=== PATIENT | male | born 1965 | race Caucasian/White ===

== ENCOUNTER 2016-08-21 23:32 | Emergency (ER) | payer OTHER ==
[~2016-08-21] VITALS: Ht 175.3 cm; Wt 81.6 kg
[~2016-08-21 23:32] MED LIST: AMLO10TA2 PO; BENA20TA4 PO; CALC667T2 PO; CARV12.516 OR; CINA60TA PO; CLON0.1T PO; ISOS20TA49 PO; MULT-397 OR; PRED-188 PO
[2016-08-22] MEDS ORDERED: SODIUM CHLORIDE 0.9% 1,000 ML IV ONE (07:26)
[2016-08-22] MEDS ORDERED: NALBUPHINE HCL 10 MG/1ml INJECTION IV ONE (07:30)
[2016-08-22] MEDS ORDERED: ASPirin 81 mg TAB PO ONE (07:30)
[2016-08-22] MEDS ORDERED: PROMETHAZINE HCL 25 MG/ML 1ML IV ONE (07:30)
[2016-08-22 08:13] LABS: Basophils # (auto) 0.1 uL; Basophils % (auto) 0.5 % (0.0-2.0); Eosinophils # (auto) 0.5 uL; Hematocrit 38.1 % (41.0-53.0); Hemoglobin 12.6 g/dL (13.5-17.5); Lymphocytes # (auto) 2.2 uL; Lymphocytes % (auto) 16.8 % (10.0-50.0); Mean Corpuscular Hemoglobin 30.4 pg (28.0-32.0); Mean Corpuscular Hgb Conc. 32.9 g/dL (32.0-36.0); Mean Corpuscular Volume 92.3 fL (80.0-100.0); Mean Platelet Volume 9.4 fL (7.4-10.4); Monocytes # (auto) 1.4 uL; Monocytes % (auto) 10.9 % (0.0-12.0); Neutrophils # (auto) 8.9 uL; Neutrophils % (auto) 67.8 % (37.0-80.0); Platelet Count (auto) 315 10^3/uL (140-450); Red Cell Distribution Width 16.1 % (11.6-16.0); White Blood Cell 13.2 10^3/uL (4.4-10.8)
[2016-08-22 08:29] LABS: Albumin 4.2 g/dL (3.4-5.0); Bilirubin, Total 0.4 mg/dL (0.2-1.0); Calcium 9.8 mg/dL (8.5-10.1); Magnesium 2.6 mg/dL (1.6-2.6); Potassium 4.8 mmol/L (3.5-5.1); Total Protein 7.5 g/dL (6.4-8.2)
[2016-08-22 08:52] LABS: B-Type Natriuretic Peptide 864.45 pg/mL (0-100); Temperature: 21.9 C (20.0-25.0)
[2016-08-22 11:20] VITALS: BP 140/85
[2016-08-22] MEDS ORDERED: FUROSEMIDE 20 MG/2 ML VIAL IV ONE (11:30)
== END 2016-08-22 11:46 | disposition home or self-care (01) ==
LOC: ER 23:38
DX: M79.89 Other specified soft tissue disorders (principal); I13.2 Hypertensive heart and chronic kidney disease with heart failure and with stage 5 chronic kidney disease, or end stage renal disease; I50.32 Chronic diastolic (congestive) heart failure; N18.6 End stage renal disease; Z99.2 Dependence on renal dialysis; D63.1 Anemia in chronic kidney disease; I25.2 Old myocardial infarction; I48.91 Unspecified atrial fibrillation; I25.10 Atherosclerotic heart disease of native coronary artery without angina pectoris; Z88.6 Allergy status to analgesic agent; Z91.041 Radiographic dye allergy status; Z79.899 Other long term (current) drug therapy
CPT/HCPCS: 36415; 71020; 73130; 80053; 83735; 83880; 84443; 84484; 85025; 85049; 93005; 94761; 96361; 96374; 96375; 99285; J2300; J2550; J7030

== ENCOUNTER 2016-10-03 14:50 | Emergency (ER) | payer OTHER ==
[~2016-10-03] VITALS: Ht 175.3 cm; Wt 81.6 kg
[2016-10-03 15:07] VITALS: BP 160/105
[2016-10-03 16:09] LABS: Albumin 3.7 g/dL (3.4-5.0); BUN/Creatinine Ratio 6.5; Bilirubin, Total 0.5 mg/dL (0.2-1.0); Calcium 9.6 mg/dL (8.5-10.1); Magnesium 2.5 mg/dL (1.6-2.6)
[2016-10-03 16:14] LABS: B-Type Natriuretic Peptide 1683.25 pg/mL (0-100); Temperature: 22.9 C (20.0-25.0)
[2016-10-03 16:32] LABS: INR 1.09 (0.9-1.15); Prothrombin Time 11.2 sec (9.37-12.3)
[2016-10-03 16:38] LABS: Basophils # (auto) 0.1 uL; Basophils % (auto) 0.9 % (0.0-2.0); Eosinophils # (auto) 0.1 uL; Eosinophils % (auto) 1.3 % (0.0-7.0); Hematocrit 31.1 % (41.0-53.0); Hemoglobin 10.1 g/dL (13.5-17.5); Lymphocytes # (auto) 0.7 uL; Lymphocytes % (auto) 9.6 % (10.0-50.0); Mean Corpuscular Hemoglobin 29.9 pg (28.0-32.0); Mean Corpuscular Hgb Conc. 32.4 g/dL (32.0-36.0); Mean Corpuscular Volume 92.2 fL (80.0-100.0); Mean Platelet Volume 10.3 fL (7.4-10.4); Monocytes # (auto) 0.5 uL; Monocytes % (auto) 6.7 % (0.0-12.0); Neutrophils # (auto) 6.1 uL; Neutrophils % (auto) 81.5 % (37.0-80.0); Platelet Count (auto) 248 10^3/uL (140-450); Potassium 7.2 mmol/L (3.5-5.1); Red Cell Distribution Width 16.7 % (11.6-16.0); White Blood Cell 7.5 10^3/uL (4.4-10.8)
== END 2016-10-03 17:45 | disposition left against medical advice (07) ==
LOC: ER 14:50
DX: R53.1 Weakness (principal); Z53.21 Procedure and treatment not carried out due to patient leaving prior to being seen by health care provider
CPT/HCPCS: 36415; 71010; 80053; 83735; 83880; 84484; 85025; 85379; 85610; 85730; 93005

== ENCOUNTER 2016-11-18 18:01 | Emergency (ER) | payer OTHER ==
[~2016-11-18] VITALS: Ht 175.3 cm; Wt 80.3 kg
[2016-11-19] MEDS ORDERED: HYDROmorphone HCL 2 MG/ML VL IM ONE (01:45)
[2016-11-19 03:54] VITALS: BP 140/88
== END 2016-11-19 04:47 | disposition home or self-care (01) ==
LOC: ER 18:16
DX: S66.912A Strain of unspecified muscle, fascia and tendon at wrist and hand level, left hand, initial encounter (principal); I48.91 Unspecified atrial fibrillation; I25.10 Atherosclerotic heart disease of native coronary artery without angina pectoris; I13.2 Hypertensive heart and chronic kidney disease with heart failure and with stage 5 chronic kidney disease, or end stage renal disease; N18.6 End stage renal disease; I50.9 Heart failure, unspecified; I25.2 Old myocardial infarction; Z88.6 Allergy status to analgesic agent; X58.XXXA Exposure to other specified factors, initial encounter; Y93.01 Activity, walking, marching and hiking; Y99.8 Other external cause status; Y92.89 Other specified places as the place of occurrence of the external cause; Z79.899 Other long term (current) drug therapy
CPT/HCPCS: 73110; 93005; 96372; 99284; J1170

== ENCOUNTER 2016-12-05 14:16 | Observation (INO) | payer OTHER ==
[~2016-12-05] VITALS: Ht 175.3 cm; Wt 81.6 kg
[2016-12-05 15:09] LABS: Basophils # (auto) 0 uL; Basophils % (auto) 0.4 % (0.0-2.0); Eosinophils # (auto) 0.2 uL; Eosinophils % (auto) 1.6 % (0.0-7.0); Hematocrit 41.3 % (41.0-53.0); Hemoglobin 13.4 g/dL (13.5-17.5); Lymphocytes # (auto) 0.7 uL; Lymphocytes % (auto) 7.3 % (10.0-50.0); Mean Corpuscular Hemoglobin 28.3 pg (28.0-32.0); Mean Corpuscular Hgb Conc. 32.5 g/dL (32.0-36.0); Mean Corpuscular Volume 87.3 fL (80.0-100.0); Mean Platelet Volume 9.2 fL (7.4-10.4); Monocytes # (auto) 0.6 uL; Monocytes % (auto) 5.7 % (0.0-12.0); Neutrophils # (auto) 8.3 uL; Platelet Count (auto) 279 10^3/uL (140-450); White Blood Cell 9.8 10^3/uL (4.4-10.8)
[2016-12-05] MEDS ORDERED: SODIUM CHLORIDE 0.9% 250 ML IV ONE (15:47)
[2016-12-05] MEDS ORDERED: MORPHINE SULF INJ 2 MG/ML SYRINGE 1ML IV ONE (16:00)
[2016-12-05] MEDS ORDERED: METOCLOPRAMIDE HCL 5MG/ml INJ 2ml VIAL IV ONE (16:00)
[2016-12-05 16:11] VITALS: BP 110/70
[2016-12-05 16:29] LABS: Albumin 3.5 g/dL (3.4-5.0); BUN/Creatinine Ratio 5.9; Calcium 9.4 mg/dL (8.5-10.1); Magnesium 2.4 mg/dL (1.6-2.6)
[2016-12-05 16:41] LABS: Bilirubin, Total 0.5 mg/dL (0.2-1.0); Total Protein 7.4 g/dL (6.4-8.2)
[2016-12-05 16:47] LABS: Potassium 5.6 mmol/L (3.5-5.1)
[2016-12-05] MEDS ORDERED: DEXTROSE (50%) 50ML SYRG IV PRN (17:30)
[2016-12-05] MEDS ORDERED: LORazepam 0.5 MG TAB PO PRN (17:30)
[2016-12-05] MEDS ORDERED: ACETAMINOPHEN 500 MG TAB PO PRN (17:30)
[2016-12-05] MEDS ORDERED: PROCHLORPERAZINE EDISYLATE 5 MG/ML 2ML VIAL IV PRN (17:30)
[2016-12-05] MEDS ORDERED: NITROGLYCERIN 0.4 MG SL TAB SL PRN (17:30)
[2016-12-05] MEDS ORDERED: LACTULOSE 20Gm/30ML SOLN PO PRN (17:30)
[2016-12-05] MEDS ORDERED: cloNIDine HCL 0.1 MG TAB PO PRN (17:30)
[2016-12-05] MEDS ORDERED: MORPHINE SULF INJ 2 MG/ML SYRINGE 1ML IV PRN ×2 (17:30)
[2016-12-05] MEDS ORDERED: TEMAZEPAM 15 MG CAP PO PRN (17:30)
[2016-12-05] MEDS ORDERED: predniSONE 20 MG TAB PO SCH (17:37)
[2016-12-05] MEDS ORDERED: CINACALCET HYDROCHLORIDE 30 MG TAB PO ONE (17:45)
[2016-12-05] MEDS ORDERED: InsuLIN REG 1unit/0.01ml Soln (100units/ml) SC SCH (18:00)
[2016-12-05] MEDS ORDERED: ISOSORBIDE MONONITRATE 60 MG TAB PO ONE (18:00)
[2016-12-05] MEDS ORDERED: ENOXAPARIN SOD 30 MG/0.3 ML SYRINGE SC ONE (18:00)
[2016-12-05] MEDS ORDERED: NITROGLYCERIN 0.2MG/HR TOPICAL PATCH TD ONE (18:00)
[2016-12-05] MEDS ORDERED: BENAZEPRIL HCL 10 MG TAB PO ONE (18:00)
[2016-12-05] MEDS ORDERED: FUROSEMIDE 40 MG/4 ML VIAL IV ONE (18:00)
[2016-12-05] MEDS ORDERED: ACCU-CHEK COMFORT CURVE STRIP VI SCH (18:00)
[2016-12-05] MEDS ORDERED: CALCIUM ACETATE 667 MG CAP PO SCH (18:00)
[2016-12-05] MEDS ORDERED: CALCIUM ACETATE PO SCH (18:00)
[2016-12-05] MEDS ORDERED: PANTOPRAZOLE 40 MG TAB PO ONE (18:00)
[2016-12-05] MEDS ORDERED: amLODIPine BESYLATE 5 MG TAB PO ONE (18:00)
[2016-12-05] MEDS ORDERED: CARVEDILOL 12.5 MG TAB PO SCH (22:00)
[2016-12-06] MEDS ORDERED: amLODIPine BESYLATE 5 MG TAB PO SCH (10:00)
[2016-12-06] MEDS ORDERED: FUROSEMIDE 40 MG/4 ML VIAL IV SCH (10:00)
[2016-12-06] MEDS ORDERED: CINACALCET HYDROCHLORIDE 30 MG TAB PO SCH (10:00)
[2016-12-06] MEDS ORDERED: BENAZEPRIL HCL 10 MG TAB PO SCH (10:00)
[2016-12-06] MEDS ORDERED: CINACALCET HYDROCHLORIDE PO SCH (10:00)
[2016-12-06] MEDS ORDERED: BENAZEPRIL HCL PO SCH (10:00)
[2016-12-06] MEDS ORDERED: PANTOPRAZOLE 40 MG TAB PO SCH (10:00)
[2016-12-06] MEDS ORDERED: ISOSORBIDE MONONITRATE 20 MG TAB PO SCH (10:00)
[2016-12-06] MEDS ORDERED: ISOSORBIDE MONONITRATE 60 MG TAB PO SCH (10:00)
[2016-12-06] MEDS ORDERED: PATIENTS OWN MEDICATION (Amlodipine Besylate 1 TAB) PO SCH ×2 (10:00)
[2016-12-06] MEDS ORDERED: ENOXAPARIN SOD 30 MG/0.3 ML SYRINGE SC SCH (10:00)
[2016-12-06] MEDS ORDERED: NITROGLYCERIN 0.2MG/HR TOPICAL PATCH TD SCH (10:00)
== END 2016-12-05 18:16 | disposition home or self-care (01) | DRG 291 ==
LOC: ER 14:20 → OVERFLOW 15:49 → UNDODEPER 18:17
PROVIDERS: ADMIT Emergency Medicine; ATTEND Emergency Medicine
DX: I13.2 Hypertensive heart and chronic kidney disease with heart failure and with stage 5 chronic kidney disease, or end stage renal disease (principal); N18.6 End stage renal disease; F33.1 Major depressive disorder, recurrent, moderate; I50.9 Heart failure, unspecified; D63.8 Anemia in other chronic diseases classified elsewhere; I48.91 Unspecified atrial fibrillation; Z99.2 Dependence on renal dialysis; I25.2 Old myocardial infarction; Z82.49 Family history of ischemic heart disease and other diseases of the circulatory system; Z82.3 Family history of stroke; G89.4 Chronic pain syndrome; F41.9 Anxiety disorder, unspecified; I25.119 Atherosclerotic heart disease of native coronary artery with unspecified angina pectoris; Z91.19 Patient's noncompliance with other medical treatment and regimen
CPT/HCPCS: 36415; 71020; 80053; 82550; 83036; 83735; 84484; 85025; 93005; 96361; 96374; 96375; 99285; G0378; J2270; J2765; J7040

== ENCOUNTER 2016-12-07 08:41 | Inpatient (IN) | payer OTHER ==
[2016-12-06] MEDS: MORPHINE SULF INJ 2 MG/ML SYRINGE 1ML IV PRN (19:40)
[~2016-12-07] VITALS: Ht 175.3 cm; Wt 83.5 kg
[2016-12-07 09:30] LABS: Basophils # (auto) 0 uL; Basophils % (auto) 0.5 % (0.0-2.0); Eosinophils # (auto) 0.5 uL; Eosinophils % (auto) 5.4 % (0.0-7.0); Hematocrit 39.5 % (41.0-53.0); Hemoglobin 12.9 g/dL (13.5-17.5); Lymphocytes # (auto) 1.7 uL; Lymphocytes % (auto) 16.6 % (10.0-50.0); Mean Corpuscular Hemoglobin 28.4 pg (28.0-32.0); Mean Corpuscular Hgb Conc. 32.7 g/dL (32.0-36.0); Mean Platelet Volume 9.3 fL (7.4-10.4); Monocytes % (auto) 9.9 % (0.0-12.0); Neutrophils # (auto) 6.8 uL; Neutrophils % (auto) 67.6 % (37.0-80.0); Platelet Count (auto) 258 10^3/uL (140-450); Red Cell Distribution Width 15.1 % (11.6-16.0)
[2016-12-07 09:51] LABS: INR 0.98 (0.9-1.15); Partial Thromboplastin Time 29.4 sec (22.64-33.71); Prothrombin Time 10.6 sec (9.37-12.3)
[2016-12-07 09:57] LABS: Albumin 3.6 g/dL (3.4-5.0); BUN/Creatinine Ratio 6.4; Bilirubin, Total 0.5 mg/dL (0.2-1.0); Calcium 10.1 mg/dL (8.5-10.1); Magnesium 2.5 mg/dL (1.6-2.6); Potassium 5.1 mmol/L (3.5-5.1); Total Protein 7.6 g/dL (6.4-8.2)
[2016-12-07] MEDS ORDERED: DILTIAZEM HCL 25 MG/5 ML VIAL IV ONE (10:15)
[2016-12-07] MEDS ORDERED: MORPHINE SULFATE 4 MG/ML SYRG IV ONE (10:15)
[2016-12-07] MEDS ORDERED: ONDANSETRON HCL 4 MG/2 ML VIAL IV ONE (10:15)
[2016-12-07] MEDS ORDERED: FUROSEMIDE 40 MG/4 ML VIAL IV ONE (10:15)
[2016-12-07] MEDS ORDERED: HYDROcodone-ACET 5/325MG TAB PO PRN (10:30)
[2016-12-07] MEDS ORDERED: PROCHLORPERAZINE EDISYLATE 5 MG/ML 2ML VIAL IV PRN (10:30)
[2016-12-07] MEDS ORDERED: cloNIDine HCL 0.1 MG TAB PO PRN (10:30)
[2016-12-07] MEDS ORDERED: ENOXAPARIN SOD 80 MG/0.8ML SYRINGE SC ONE (10:30)
[2016-12-07] MEDS ORDERED: CARVEDILOL 12.5 MG TAB PO ONE (10:30)
[2016-12-07] MEDS ORDERED: ACETAMINOPHEN 500 MG TAB PO PRN (10:30)
[2016-12-07] MEDS ORDERED: METOPROLOL TARTRATE 25 MG TAB PO SCH (10:30)
[2016-12-07] MEDS ORDERED: NITROGLYCERIN 0.4 MG SL TAB SL PRN (10:30)
[2016-12-07] MEDS ORDERED: LACTULOSE 20Gm/30ML SOLN PO PRN (10:30)
[2016-12-07] MEDS ORDERED: LORazepam 0.5 MG TAB PO PRN (10:30)
[2016-12-07] MEDS ORDERED: TEMAZEPAM 15 MG CAP PO PRN (10:30)
[2016-12-07] MEDS ORDERED: ENOXAPARIN SOD 80 MG/0.8ML SYRINGE SC SCH (10:45)
[2016-12-07] MEDS: ISOSORBIDE MONONITRATE 60 MG TAB PO SCH (10:45)
[2016-12-07] MEDS: PANTOPRAZOLE 40 MG TAB PO SCH (11:00)
[2016-12-07] MEDS ORDERED: ENOXAPARIN SOD 30 MG/0.3 ML SYRINGE SC SCH (11:00)
[2016-12-07] MEDS ORDERED: predniSONE 20 MG TAB PO ONE (11:00)
[2016-12-07] MEDS ORDERED: amLODIPine BESYLATE 5 MG TAB PO ONE (11:00)
[2016-12-07] MEDS: CALCIUM ACETATE 667 MG CAP PO SCH ×2 (11:34→16:58)
[2016-12-07] MEDS ORDERED: CALCIUM ACETATE PO SCH (12:00)
[2016-12-07] MEDS: MORPHINE SULF INJ 2 MG/ML SYRINGE 1ML IV PRN ×4 (12:54→23:52)
[2016-12-07 16:05] VITALS: BP 140/91
[2016-12-07 17:00] VITALS: BP 140/91
[2016-12-07] MEDS ORDERED: NITR0.4S29 SL (19:53)
[2016-12-07 21:36] VITALS: BP 120/86
[2016-12-07] MEDS: CARVEDILOL 12.5 MG TAB PO SCH (22:00)
[2016-12-07] MEDS: ATORVASTATIN 20 MG TAB PO SCH (22:01)
[2016-12-07] MEDS: ONDANSETRON HCL 4 MG/2 ML VIAL IV PRN (23:51)
[2016-12-08] MEDS: MORPHINE SULF INJ 2 MG/ML SYRINGE 1ML IV PRN ×2 (03:50→07:57)
[2016-12-08 04:34] VITALS: BP 153/97
[2016-12-08] MEDS: ONDANSETRON HCL 4 MG/2 ML VIAL IV PRN (06:10)
[2016-12-08 06:11] LABS: Cholesterol 159 mg/dL (< 200); HDL Cholesterol 55 mg/dL (40-59); LDL Cholesterol 93 mg/dL (< 100); Triglycerides 127 mg/dL (< 150)
[2016-12-08] MEDS: CALCIUM ACETATE 667 MG CAP PO SCH ×3 (07:32→17:32)
[2016-12-08 08:00] VITALS: BP 146/102
[2016-12-08] MEDS: CARVEDILOL 12.5 MG TAB PO SCH ×2 (10:00→21:39)
[2016-12-08] MEDS ORDERED: predniSONE 20 MG TAB PO SCH (10:00)
[2016-12-08] MEDS ORDERED: NITROGLYCERIN 0.2MG/HR TOPICAL PATCH TD SCH (10:00)
[2016-12-08] MEDS ORDERED: PATIENTS OWN MEDICATION (Amlodipine Besylate 1 TAB) PO SCH ×2 (10:00)
[2016-12-08] MEDS ORDERED: BENAZEPRIL HCL PO SCH (10:00)
[2016-12-08] MEDS ORDERED: SODIUM POLYSTYRENE SULF 15GM/60ML SUSP PO ONE (10:15)
[2016-12-08] MEDS ORDERED: CALCIUM GLUC 4.65 MEQ/10ML 4.65 MEQ in SODIUM CHL 0.9% 50 ML IV ONE ×2 (10:15→17:45)
[2016-12-08] MEDS ORDERED: DEXTROSE (50%) 50ML SYRG IV ONE (10:30)
[2016-12-08] MEDS ORDERED: InsuLIN REG 1unit/0.01ml Soln (100units/ml) IV ONE (10:30)
[2016-12-08 11:40] VITALS: BP 146/102
[2016-12-08] MEDS: CINACALCET HYDROCHLORIDE 30 MG TAB PO SCH (12:07)
[2016-12-08] MEDS: PANTOPRAZOLE 40 MG TAB PO SCH (12:07)
[2016-12-08] MEDS: ISOSORBIDE MONONITRATE 60 MG TAB PO SCH (12:08)
[2016-12-08] MEDS: amLODIPine BESYLATE 5 MG TAB PO SCH (12:09)
[2016-12-08] MEDS: BENAZEPRIL HCL 10 MG TAB PO SCH (12:09)
[2016-12-08 16:53] VITALS: BP 144/90
[2016-12-08 18:35] LABS: BUN/Creatinine Ratio 7.2; Calcium 9.8 mg/dL (8.5-10.1)
[2016-12-08 18:44] LABS: Potassium 6.9 mmol/L (3.5-5.1)
[2016-12-08] MEDS: NITROGLYCERIN 0.4 MG SL TAB SL PRN (20:10)
[2016-12-08] MEDS ORDERED: ACETAMINOPHEN 325 MG TAB PO PRN (20:30)
[2016-12-08] MEDS ORDERED: DEXTROSE (50%) 50ML SYRG IV SCH (21:00)
[2016-12-08] MEDS ORDERED: DEXTROSE (50%) 50ML SYRG IV PRN (21:15)
[2016-12-08] MEDS: ATORVASTATIN 20 MG TAB PO SCH (21:39)
[2016-12-08 21:42] VITALS: BP 146/98
[2016-12-09 05:00] VITALS: BP 133/87
[2016-12-09] MEDS: NITROGLYCERIN 0.4 MG SL TAB SL PRN (05:06)
[2016-12-09 06:01] LABS: Calcium 8.8 mg/dL (8.5-10.1)
[2016-12-09 06:09] LABS: BUN/Creatinine Ratio 7.3
[2016-12-09 06:17] LABS: Potassium 5.7 mmol/L (3.5-5.1)
[2016-12-09 08:00] VITALS: BP 150/97
[2016-12-09] MEDS: CALCIUM ACETATE 667 MG CAP PO SCH ×2 (08:00→12:00)
[2016-12-09 09:00] VITALS: BP 136/97
[2016-12-09] MEDS ORDERED: diphenhdrAMINE HCL 50 MG/1 ML VL IV ONE ×2 (09:30)
[2016-12-09] MEDS: PANTOPRAZOLE 40 MG TAB PO SCH (10:00)
[2016-12-09] MEDS: CARVEDILOL 12.5 MG TAB PO SCH (10:00)
[2016-12-09] MEDS: CINACALCET HYDROCHLORIDE 30 MG TAB PO SCH (10:00)
[2016-12-09] MEDS: BENAZEPRIL HCL 10 MG TAB PO SCH (10:00)
[2016-12-09] MEDS: amLODIPine BESYLATE 5 MG TAB PO SCH (10:00)
[2016-12-09] MEDS: ISOSORBIDE MONONITRATE 60 MG TAB PO SCH (10:00)
[2016-12-09] MEDS ORDERED: HEPARIN SODIUM (PORCINE) 5000 UNITS/ML 1ML VIAL IV ONE (10:45)
[2016-12-09] MEDS ORDERED: EPOETIN ALFA 2,000 UNIT/1 ML VIAL IV ONE (10:45)
[2016-12-09] MEDS ORDERED: diphenhdrAMINE HCL 50 MG/1 ML VL ONE (10:50)
[2016-12-09] MEDS ORDERED: EPOETIN ALFA 3,000 UNIT/1 ML VIAL IV ONE ×2 (11:00)
== END 2016-12-09 14:30 | disposition home or self-care (01) | DRG 291 ==
LOC: ER 08:41 → TELE 08:42 → TELE-CENTR 16:09
PROVIDERS: ADMIT Family Medicine; ATTEND Family Medicine
PROC: 5A1D00Z (ICD-10-PCS; principal; 2016-12-09)
DX: I13.2 Hypertensive heart and chronic kidney disease with heart failure and with stage 5 chronic kidney disease, or end stage renal disease (principal); I50.31 Acute diastolic (congestive) heart failure; N18.6 End stage renal disease; I48.92 Unspecified atrial flutter; R07.89 Other chest pain; D63.1 Anemia in chronic kidney disease; I25.10 Atherosclerotic heart disease of native coronary artery without angina pectoris; F12.90 Cannabis use, unspecified, uncomplicated; I48.0 Paroxysmal atrial fibrillation; J44.9 Chronic obstructive pulmonary disease, unspecified; I25.2 Old myocardial infarction; Z82.3 Family history of stroke; Z82.49 Family history of ischemic heart disease and other diseases of the circulatory system; Z99.2 Dependence on renal dialysis; Z90.49 Acquired absence of other specified parts of digestive tract; Z88.6 Allergy status to analgesic agent; Z88.5 Allergy status to narcotic agent; Z91.041 Radiographic dye allergy status; Z79.899 Other long term (current) drug therapy
CPT/HCPCS: 36415; 71020; 80048; 80053; 80061; 82550; 82962; 83735; 84443; 84484; 85025; 85610; 85652; 85730; 86141; 87081; 90935; 93005; 96374; 96375; 96376; 99291; J1815; J2405; Q4081

== ENCOUNTER 2017-02-01 21:18 | Emergency (ER) | payer OTHER ==
[~2017-02-01] VITALS: Ht 175.3 cm; Wt 79.4 kg
[~2017-02-01 21:18] MED LIST changes: +BENA20TA14 PO; -BENA20TA4 PO; +CAR125T OR; -CARV12.516 OR; +NITR0.4S29 SL
[2017-02-01 22:41] LABS: Basophils # (auto) 0 uL; CONDITION Y; Eosinophils # (auto) 0 uL; Hematocrit 33.6 % (41.0-53.0); Hemoglobin 11.3 g/dL (13.5-17.5); Lymphocytes # (auto) 0.6 uL; Lymphocytes % (auto) 8.6 % (10.0-50.0); Mean Corpuscular Hemoglobin 29.1 pg (28.0-32.0); Mean Corpuscular Hgb Conc. 33.6 g/dL (32.0-36.0); Mean Corpuscular Volume 86.6 fL (80.0-100.0); Mean Platelet Volume 9.2 fL (7.4-10.4); Monocytes # (auto) 0.5 uL; Monocytes % (auto) 7.4 % (0.0-12.0); Neutrophils # (auto) 5.6 uL; Platelet Count (auto) 257 10^3/uL (140-450); Red Cell Distribution Width 15.9 % (11.6-16.0); White Blood Cell 6.7 10^3/uL (4.4-10.8)
[2017-02-01 22:47] LABS: INR 1.04 (0.9-1.15); Partial Thromboplastin Time 28.6 sec (22.64-33.71); Prothrombin Time 11.3 sec (9.37-12.3)
[2017-02-01 23:07] VITALS: BP 179/105
[2017-02-01 23:39] LABS: Chloride 93 mmol/L (98-107); Potassium 3.4 mmol/L (3.5-5.1); Sodium 138 mmol/L (136-145)
[2017-02-01 23:45] LABS: Albumin 3.8 g/dL (3.4-5.0); Anion Gap 14 (5-15); BUN/Creatinine Ratio 4.4; Blood Urea Nitrogen 17 mg/dL (7-18); Carbon Dioxide 31 mmol/L (21-32); GFR African American 21 mL/min; GFR Non-African American 17 mL/min; Glucose 138 mg/dL (74-106); Magnesium 2.2 mg/dL (1.6-2.6)
[2017-02-01 23:50] LABS: Alkaline Phosphatase 214 U/L (45-117); Aspartate Aminotransferase 21 U/L (15-37); Bilirubin, Total 0.6 mg/dL (0.2-1.0); Total Protein 7.7 g/dL (6.4-8.2)
== END 2017-02-02 02:41 | disposition left against medical advice (07) ==
LOC: ER 21:21
DX: R07.89 Other chest pain (principal); Z53.21 Procedure and treatment not carried out due to patient leaving prior to being seen by health care provider
CPT/HCPCS: 36415; 71020; 80053; 83735; 84484; 85025; 85610; 85730; 93005